=== PATIENT | male | born 1960 | race Caucasian/White ===

== ENCOUNTER 2021-09-01 21:27 | Inpatient (IN) | payer OTHER, SELFPAY ==
--- NOTE | ~2021-09-01 | XR_ITS ---
EXAMINATION: XR chest 1V portable DATE: 09/05/2021 08:31 INDICATION: Shortness of breath. COVID-19 pneumonia. Hypoxia. TECHNIQUE: A single frontal view of the chest was obtained. COMPARISON: Chest single view 09/01/2021 FINDINGS: There are patchy airspace opacities in all lung zones bilaterally with a peripheral predomi nance. No pleural effusion or pneumothorax. The heart size is normal. IMPRESSION: 1. Worsened diffuse lung disease, consistent with COVID-19 pneumonia. Reviewed, dictated and finalized at location A.
--- NOTE | ~2021-09-01 | XR_ITS ---
EXAMINATION: XR chest 1V portable DATE: 09/01/2021 22:24 INDICATION: Fever and cough. TECHNIQUE: A single frontal view of the chest was obtained. COMPARISON: None. FINDINGS: There are patchy airspace opacities in the mid and lower lung zones. No pleural effusion or pneumothorax. The heart size is normal. There are old healed right rib fractures. IMPRESSION: 1. Patchy airspace opacities in the mid and lower lung zones, consistent with COVID-19 pneumonia. Reviewed, dictated and finalized at location A. IMPRESSION: 1. Patchy airspace opacities in the mid and lower lung zones, consistent with C OVID-19 pneumonia.
--- NOTE | 2021-09-01 21:37 | ED.FEVER ---
HPI - Fever General Chief Complaint: Fever Stated Complaint: nausea,vomitting,fever Time Seen by Provider: 09/01/21 21:50 Source: patient Mode of arrival: wheelchair Limitations: no limitations History of Present Illness HPI Narrative: 60-year-old man with a history of type 2 diabetes sleep apnea, hypertension comes emergency department complaining of weakness, fever, cough, vomiting and nausea. Patient states his symptoms started 5 days ago. He denies shortness of breath and chest pain has had no diarrhea, rash, known sick contacts, abdominal pain or dysuria. MD elicited complaint: fever and weakness Pertinent past history: diabetes Onset (ago): day(s) (5) Exacerbating factors: nothing Relieving factors: nothing Associated symptoms: cough, nausea, vomiting and back/flank pain Treatments prior to arrival fever: acetaminophen (At 3:00 p.m.) Related Data Home Medications Medication Instructions Recorded Confirmed hydrochlorothiazide 25 mg tablet 25 mg PO DAILY 05/24/20 09/01/21 levothyroxine 88 mcg tablet 88 mcg PO DAILY 05/24/20 09/01/21 lisinopril 30 mg tablet 20 mg PO DAILY 05/24/20 09/01/21 metformin 1,000 mg tablet,extended 1,000 mg PO BID 05/24/20 09/01/21 release 24hr sitagliptin 100 mg tablet 100 mg PO DAILY 05/24/20 09/01/21 atorvastatin 40 mg PO DAILY 09/01/21 09/01/21 dulaglutide [Trulicity] 0.75 mg SUBCUT WEEKLY 09/01/21 09/01/21 trazodone 100 mg PO HS 09/01/21 09/01/21 Allergies Allergy/AdvReac Type Severity Reaction Status Date / Time Penicillins Allergy Hives Verified 09/01/21 21:49 zolpidem [From Ambien] AdvReac sleepwalkin Verified 09/01/21 21:49 g Review of Systems Review of Systems: All systems reviewed & are unremarkable except as noted in HPI and below Constitutional: Constitutional: Denies chills, Reports fatigue and Reports fever(s) Eyes: Eyes: Denies change in vision and Denies photophobia ENT: Denies nasal congestion and Denies sore throat Cardiovascular: Cardiovascular: Denies chest pain Respiratory: Respiratory: Reports cough, Denies dyspnea and Denies wheezing Gastrointestinal: Gastrointestinal: Denies abdominal pain, Denies diarrhea, Reports nausea and Reports vomiting Genitourinary: Genitourinary: Denies hematuria and Denies dysuria Musculoskeletal: Musculoskeletal: Reports back pain, Denies arthralgias and Denies joint swelling Integumentary/Breasts: Skin/Breast: Denies pruritus, Denies erythema and Denies rash Neurologic: Denies vertigo, Denies dizziness, Denies syncope, Denies headache(s), Denies focal weakness and Denies numbness Allergic/Immunologic: Allergic/Immunologic: Denies lip swelling, Denies throat swelling and Denies tongue swelling PMFSH Past Medical History Medical History Diabetes Dyslipidemia Hypertension Hypothyroidism Sleep apnea Vision abnormalities Surgical History Surgical History History of knee surgery right knee scope History of thyroidectomy Family History Family History (Updated 05/24/20 @ 08:47 by Lorrie Rajput, RT(R)) Other Arthritis Diabetes mellitus Hypertension Nerve disorder Social History Social History (Updated 09/01/21 @ 22:21 by Froylan Maloney MD) Smoking status: Current some day smoker Alcohol intake: current Substance use: never Living arrangements: with family Exam Const: General: alert and ill appearing acutely Orientation/consciousness: patient oriented x3 Limitations: no limitations Other: Mild acute distress HENMT: Head: normal to inspection Ears: external ears normal, TM's normal bilaterally and EAC's normal General nose exam: Normal nares present Face and sinus: normal facial exam Mouth: Yes moist mucous membranes Throat: posterior oropharynx normal Eyes: Conjunctivae: conjunctivae normal Pupils: Equal, round and reactive pupils present EOM: EOMs intac
[2021-09-01 21:44] VITALS: BP 135/80; PULSE 96; RESP 20; TEMP 40; O2SAT 92
--- NOTE | 2021-09-01 21:49 | ECG_ITS ---
Measurements Intervals [place] Rate: 91 P: 24 AK: 155 QRS: -9 QRSD: 90 T: 1 QT: 334 QTc: 412 Interpretive Statements SINUS RHYTHM BORDERLINE T WAVE ABNORMALITY- INFERIOR LEADS BASELINE ARTIFACT- AVF BORDERLINE ECG Electronically Signed On 09-02-2021 7:48:14 CDT by Brock De D.O.
[2021-09-01] MEDS: ACETAMINOPHEN 500 MG TABLET 1000 MG PO (22:06)
[2021-09-01] MEDS: SODIUM CHLORIDE 0.9% IV 1,000 ML 999 ML IV CONT (22:06)
[2021-09-01] MEDS: ONDANSETRON INJ 4 MG/2 ML VIAL IV PUSH (22:06)
[2021-09-01 22:13] LABS: Basophils Absolute Auto 0.02 K/mm3 (0.00-0.10); Basophils Percent Auto 0.8 % (0.0-1.0); Hematocrit 50.8 % (40.0-54.0); Hemoglobin 17.2 g/dL (14.0-18.0); Immature Granulocyte Absolute 0.01 K/mm3 (0.00-0.00); Immature Granulocyte Percent A 0.4 % (0.0-0.0); Immature Platelet Fraction Pct 2.6 % (1.0-7.0); Lymphocytes Absolute Auto 0.76 K/mm3 (1.10-4.50); Lymphocytes Percent Auto 30.8 % (18.0-42.0); Mean Corpuscular HGB Conc 33.9 g/dL (32.0-36.0); Mean Corpuscular Hemoglobin 28.9 pg (27.0-31.0); Mean Corpuscular Volume 85.4 fL (78.0-102.0); Mean Platelet Volume 10.1 fl (8.7-11.0); Monocytes Absolute Auto 0.08 K/mm3 (0.10-0.90); Monocytes Percent Auto 3.2 % (2.0-11.0); Neutrophils Absolute Auto 1.6 K/mm3 (1.7-7.2); Neutrophils Percent Auto 64.8 % (50.0-70.0); Platelet Count Result 132 K/mm3 (150-420); Red Blood Count 5.95 M/mm3 (4.70-6.10); Red Cell Distribution Width 13.3 % (11.6-14.4); White Blood Count 2.5 K/mm3 (4.8-10.8)
[2021-09-01 22:21] VITALS: RESP 20
[2021-09-01 22:22] LABS: INR 1.1; Partial Thromboplastin Time 34.2 SEC (23.90-30.70); Prothrombin Time 11.3 Seconds (9.50-12.10)
[2021-09-01 22:27] VITALS: BP 132/89; PULSE 88; PULSE 90; RESP 20; O2SAT 89; O2SAT 91
[2021-09-01 22:27] LABS: Lactic Acid Reflex 1.2 mmol/L (0.4-2.0)
[2021-09-01 22:33] LABS: Appearance Urine Clear (Clear); Bilirubin Urine Negative (Negative); Color Urine Yellow (Yellow); Glucose Urine UA Negative (Negative); Ketones Urine Negative (Negative); Leukocyte Esterase Ur Negative LEU/UL (Negative); Nitrate Urine Negative (Negative); Protein Urine 2+ (Negative); Specific Grav Ur >= 1.030 (1.010-1.020); Urobilinogen Urine 0.2 mg/dL (0.2-1.0); pH Urine 5.5 (5.0-8.0)
[2021-09-01 22:36] LABS: Alanine Aminotransferase 34 U/L (16-63); Albumin Level 3.5 g/dL (3.4-5.0); Alkaline Phosphatase 51 U/L (46-116); Anion Gap 12 mmol/L (8-16); Aspartate Amino Transferase 28 U/L (15-37); Bilirubin,Total 0.4 mg/dL (0.00-1.00); Blood Urea Nitrogen 9 mg/dL (7-18); Calcium 8.5 mg/dL (8.5-10.1); Carbon Dioxide 25 mmol/L (21-32); Chloride 100 mmol/L (98-108); Estimated CRCL calculation 51 ml/min; Estimated Glomerular Filt Rate 42; Glucose 193 mg/dL (70-99); Osmolality Calculated 287 mOsm/kg (285-295); Potassium 4.1 mmol/L (3.5-5.1); Sodium 137 mmol/L (136-145)
[2021-09-01 22:38] VITALS: TEMP 38.9
--- NOTE | 2021-09-01 22:39 | PC.NURSE ---
PT RESTING PER COT. CALL JEWELL IN REACH. AWAITING LAB RESULTS.
[2021-09-01 22:41] LABS: Add Urine Microscopic? YES; Blood Urine Trace-lysed (Negative)
[2021-09-01 22:42] LABS: Bacteria Urine 1+ /hpf; Mucus Urine Few /lpf; Squamous Epithelial Cell Urine Rare /hpf (Few)
[2021-09-01 22:43] LABS: Troponin I 8.8 ng/L (0.00-60.4)
[2021-09-01 23:09] LABS: Influenza A QL RT-PCR Negative (Negative); Influenza B QL RT-PCR Negative (Negative); SARS-CoV-2 RNA PCR Positive (Negative)
[2021-09-01 23:18] VITALS: PULSE 78; RESP 20; O2SAT 92
[2021-09-01 23:43] VITALS: BP 98/80; PULSE 80; RESP 18; TEMP 38.9; O2SAT 97
[2021-09-02] VITALS (16 sets, daily range): BP systolic 93–129; BP diastolic 54–77; PULSE 63–78; RESP 20–32; TEMP 36.8–37.7; O2SAT 87–97; BMI 32.2
--- NOTE | 2021-09-02 00:27 | PC.NURSE ---
Tamie admitted to room 210 per stretcher from ER. Tamie alert and oriented and is oriented to room and call light.
[2021-09-02] MEDS: traZODone HCL 50 MG TABLET 100 MG PO ×2 (00:53→20:06)
[2021-09-02] MEDS: DEXAMETHASONE SOD PHOS INJ 4 MG/ML VIAL 6 MG IV PUSH ×2 (01:21→08:39)
[2021-09-02] MEDS: PANTOPRAZOLE SODIUM IV 40 MG VIAL IV PUSH ×2 (01:21→08:40)
[2021-09-02] MEDS: SODIUM CHLORIDE 0.9% IV 1,000 ML 150 ML IV CONT ×2 (01:31→20:16)
[2021-09-02] MEDS: REMDESIVIR 200 MG/NS 250 ML 200 MG/250 ML BAG 250 MG IVPB (01:32)
[2021-09-02 05:16] LABS: Hematocrit 40.9 % (40.0-54.0); Hemoglobin 13.9 g/dL (14.0-18.0); Mean Corpuscular Hemoglobin 29.1 pg (27.0-31.0); Mean Corpuscular Volume 85.6 fL (78.0-102.0); Mean Platelet Volume 9.4 fl (8.7-11.0); Platelet Count Result 125 K/mm3 (150-420); Red Blood Count 4.78 M/mm3 (4.70-6.10); Red Cell Distribution Width 13.4 % (11.6-14.4); White Blood Count 2.7 K/mm3 (4.8-10.8)
[2021-09-02 05:29] LABS: INR 1.1; Prothrombin Time 11.8 Seconds (9.50-12.10)
[2021-09-02 05:31] LABS: Alanine Aminotransferase 27 U/L (16-63); Albumin Level 2.7 g/dL (3.4-5.0); Alkaline Phosphatase 38 U/L (46-116); Anion Gap 12 mmol/L (8-16); Aspartate Amino Transferase 26 U/L (15-37); Bilirubin,Total 0.3 mg/dL (0.00-1.00); Blood Urea Nitrogen 12 mg/dL (7-18); Calcium 7.7 mg/dL (8.5-10.1); Carbon Dioxide 23 mmol/L (21-32); Chloride 103 mmol/L (98-108); Estimated CRCL calculation 61 ml/min; Estimated Glomerular Filt Rate 50; Glucose 233 mg/dL (70-99); Osmolality Calculated 292 mOsm/kg (285-295); Potassium 4.4 mmol/L (3.5-5.1); Sodium 138 mmol/L (136-145); Total Protein 6.2 g/dL (6.4-8.2)
[2021-09-02 05:56] LABS: Troponin I 9.2 ng/L (0.00-60.4)
[2021-09-02 05:58] LABS: Band Neutrophils Percent 0 % (0-6); Basophils Absolute Manual 0.02 K/mm3 (0-0.1); Basophils Percent Manual 1 % (0-1); Eosinophils Percent Manual 0 % (1-6); Lymphocytes Absolute Manual 0.91 K/mm3 (1.1-4.5); Lymphocytes Percent Manual 34 % (18-44); Monocytes Absolute Manual 0.05 K/mm3 (0.1-0.90); Monocytes Percent Manual 2 % (3-9); Neutrophils Percent Manual 63 % (46-73); Platelet Estimate Adequate (Adequate); Total Cells Counted 100
[2021-09-02] MEDS: LEVOTHYROXINE SODIUM 88 MCG TABLET PO (06:10)
[2021-09-02 07:46] LABS: Glucose Point of Care 250 mg/dl (65-105)
[2021-09-02] MEDS: ENOXAPARIN 40 MG/0.4 ML SYRINGE SUB-Q (08:40)
[2021-09-02] MEDS: ATORVASTATIN 40 MG TABLET PO (08:41)
[2021-09-02] MEDS: lisinopriL 20 MG TABLET PO (08:42)
[2021-09-02] MEDS: hydroCHLOROthiazide 25 MG TABLET PO (08:42)
--- NOTE | 2021-09-02 09:04 | PM.IMHP ---
H&P: HPI History of Present Illness Date/Time: 09/02/21 09:04 Sudarshan Newell is a 60 year old male who comes to the ER with a week long history of SOB, body aches, subjective fevers, decreased appetite, joint aches, minimal diarrhea, decreased PO fluid intake. Pt states that he has not had any COVID vaccination. Over the last couple days Pt's symptoms increased and he became lethargic. ABG obtained on the floor and shows: pH 7.4, pCO2 34.9, pO2 60.6, HCO3 21.2, O2 Sat 91.1 Pt has a PHMx to include: DM, Dyslipidemia, Hypertension, Hypothyroidism, Sleep apnea, Vision abnormalities Chief Complaint: SOB, Lethargy Review of Systems Review of Systems: All systems reviewed & are unremarkable except as noted in HPI and below Respiratory: Respiratory: Reports no additional respiratory complaints, Reports cough (continuous coughing with deep inspiration), Reports dyspnea and Reports dyspnea on exertion Gastrointestinal: Gastrointestinal: Reports no additional gastrointestinal complaints and Denies abdominal pain Genitourinary: Genitourinary: Reports no additional male genitourinary complaints Musculoskeletal: Musculoskeletal: Reports as per HPI Neurologic: Reports system reviewed and no additional complaints, except as documented, Denies vertigo, Denies dizziness, Denies headache(s) and Reports weakness (Lethargy) Psychiatric: Psychiatric: Reports no additional psychiatric complaints [facility] Past Medical History Medical History (Updated 09/02/21 @ 11:28 by JOSE Arroyo) Diabetes Dyslipidemia Hypertension Hypothyroidism Sleep apnea Vision abnormalities Surgical History Surgical History History of knee surgery right knee scope History of thyroidectomy Family History Family History Other Arthritis Diabetes mellitus Hypertension Nerve disorder Social History Social History Smoking status: Never smoker Second hand tobacco smoke exposure: No Alcohol intake: never Substance use: never Living arrangements: with family Spiritual care concerns: No Meds Home Medications and Allergies Home Medications Medication Instructions Recorded Confirmed Type hydrochlorothiazide 25 mg tablet 25 mg PO DAILY 05/24/20 09/01/21 History levothyroxine 88 mcg tablet 88 mcg PO DAILY 05/24/20 09/01/21 History lisinopril 30 mg tablet 20 mg PO DAILY 05/24/20 09/01/21 History metformin 1,000 mg tablet,extended 1,000 mg PO BID 05/24/20 09/01/21 History release 24hr sitagliptin 100 mg tablet 100 mg PO DAILY 05/24/20 09/01/21 History atorvastatin 40 mg PO DAILY 09/01/21 09/01/21 History dulaglutide [Trulicity] 0.75 mg SUBCUT WEEKLY 09/01/21 09/01/21 History trazodone 100 mg PO HS 09/01/21 09/01/21 History Allergies Allergy/AdvReac Type Severity Reaction Status Date / Time Penicillins Allergy Hives Verified 09/01/21 21:49 zolpidem [From Ambien] AdvReac sleepwalkin Verified 09/01/21 21:49 g Vital Signs Vital Signs - 24 hr 09/01/21 21:44 09/01/21 22:21 09/01/21 22:27 Temperature 104.0 F H Pulse Rate 96 88 Respiratory Rate 20 20 20 Blood Pressure 135/80 132/89 Pulse Oximetry 92 91 09/01/21 22:38 09/01/21 23:18 09/01/21 23:43 Temperature 102.1 F H 102.1 F H Pulse Rate 78 80 Respiratory Rate 20 18 Blood Pressure 98/80 L Pulse Oximetry 92 97 09/02/21 00:00 09/02/21 02:00 09/02/21 03:23 Temperature 99.8 F H 98.2 F Pulse Rate 78 78 78 Respiratory Rate 20 20 Blood Pressure 110/71 129/71 Pulse Oximetry 91 92 09/02/21 06:00 09/02/21 07:56 09/02/21 07:58 Temperature 98.6 F Pulse Rate 67 76 71 Respiratory Rate Blood Pressure 111/66 Pulse Oximetry 89 L Exam Const: General: cooperative, no acute distress, alert, awake and tired appearing Nutritional Appearance: overweight Limitations: ot
[2021-09-02] MEDS: ALBUTEROL SULFATE (*SP) INHALER 2 PUFF INHALATION ×4 (09:42→20:26)
[2021-09-02] MEDS: guaiFENesin/DEXTROMETHORPHAN 5 ML UDC 10 ML PO ×3 (09:45→20:15)
[2021-09-02 10:21] LABS: Base Excess ABG -2.8 mmol/L (0-2); HCO3 ABG 21.2 mmol/L (23-29); Oxygen Content ABG 18.2 %vol (16.0-22.0); Oxygen Saturation ABG 91.1 % (95-97); Oxyhemoglobin 90.6 % (94-100); PCO2 ABG 34.9 mmHg (35-45); PO2 ABG 60.6 mmHg (80-90); Total Hemoglobin 14.3 g/dL (12.0-18.0)
[2021-09-02 10:22] LABS: Modified Allen's Test Pass; Site Drawn LEFT RADIAL
[2021-09-02 10:23] LABS: Device NASAL CANNULA; Liters per Minute 1.5 LPM
[2021-09-02 12:01] LABS: Glucose Point of Care 264 mg/dl (65-105)
[2021-09-02 16:51] LABS: Glucose Point of Care 214 mg/dl (65-105)
--- NOTE | 2021-09-02 18:40 | PC.NURSE ---
Patient rounding completed. Patient was sitting up in bed with urinal in hand getting ready to void. Call light is within reach of patient and pt was in a pleasant mood.
[2021-09-02 21:22] LABS: Glucose Point of Care 242 mg/dl (65-105)
[2021-09-02] MEDS: REMDESIVIR 100 MG/NS 250 ML 100 MG/250 ML BAG 250 MG IVPB (21:51)
[2021-09-03] VITALS (16 sets, daily range): BP systolic 97–130; BP diastolic 58–75; PULSE 54–89; RESP 18–21; TEMP 36.1–36.8; O2SAT 92–98
--- NOTE | 2021-09-03 02:02 | PC.NURSE ---
Voided in urinal @ bedside. O2 L& IV continues.
--- NOTE | 2021-09-03 03:17 | PC.NURSE ---
Voided in urinal @ bedside. IV & o2 continues.
[2021-09-03 05:39] LABS: HCO3 ABG 21.2 mmol/L (23-29); Oxygen Content ABG 17.9 %vol (16.0-22.0); Oxygen Saturation ABG 94.6 % (95-97); Oxyhemoglobin 94.1 % (94-100); PCO2 ABG 35.3 mmHg (35-45); PO2 ABG 78.7 mmHg (80-90); Total Hemoglobin 13.5 g/dL (12.0-18.0)
[2021-09-03 05:42] LABS: Hematocrit 37.6 % (40.0-54.0); Hemoglobin 12.9 g/dL (14.0-18.0); Mean Corpuscular HGB Conc 34.3 g/dL (32.0-36.0); Mean Corpuscular Hemoglobin 29.2 pg (27.0-31.0); Mean Corpuscular Volume 85.1 fL (78.0-102.0); Mean Platelet Volume 9.6 fl (8.7-11.0); Platelet Count Result 156 K/mm3 (150-420); Red Blood Count 4.42 M/mm3 (4.70-6.10); Red Cell Distribution Width 13.3 % (11.6-14.4); White Blood Count 3.7 K/mm3 (4.8-10.8)
[2021-09-03 05:48] LABS: Device NON-REBREATHER MASK; Modified Allen's Test Pass; Site Drawn LEFT RADIAL
[2021-09-03 05:53] LABS: INR 1.1; Prothrombin Time 11.8 Seconds (9.50-12.10)
[2021-09-03 05:57] LABS: Alanine Aminotransferase 29 U/L (16-63); Albumin Level 2.5 g/dL (3.4-5.0); Alkaline Phosphatase 35 U/L (46-116); Anion Gap 11 mmol/L (8-16); Aspartate Amino Transferase 19 U/L (15-37); Bilirubin,Total 0.3 mg/dL (0.00-1.00); Blood Urea Nitrogen 17 mg/dL (7-18); Calcium 7.5 mg/dL (8.5-10.1); Carbon Dioxide 23 mmol/L (21-32); Chloride 106 mmol/L (98-108); Estimated CRCL calculation 66 ml/min; Estimated Glomerular Filt Rate 55; Glucose 176 mg/dL (70-99); Osmolality Calculated 295 mOsm/kg (285-295); Potassium 4.1 mmol/L (3.5-5.1); Sodium 140 mmol/L (136-145); Total Protein 5.8 g/dL (6.4-8.2)
[2021-09-03] MEDS: LEVOTHYROXINE SODIUM 88 MCG TABLET PO (06:15)
[2021-09-03] MEDS: SODIUM CHLORIDE 0.9% IV 1,000 ML 150 ML IV CONT (06:16)
[2021-09-03] MEDS: guaiFENesin/DEXTROMETHORPHAN 5 ML UDC 10 ML PO ×3 (06:16→21:55)
--- NOTE | 2021-09-03 07:02 | PC.NURSE ---
Pt did have episode of spo2 @88% after taking his 0600 po meds. Head of bed elevated O2 put at 4L per NC spo2 up to 95%.
[2021-09-03 07:57] LABS: Glucose Point of Care 166 mg/dl (65-105)
[2021-09-03] MEDS: ATORVASTATIN 40 MG TABLET PO (08:49)
[2021-09-03] MEDS: ALBUTEROL SULFATE (*SP) INHALER 2 PUFF INHALATION ×4 (08:49→21:11)
[2021-09-03] MEDS: DEXAMETHASONE SOD PHOS INJ 4 MG/ML VIAL 6 MG IV PUSH (08:50)
[2021-09-03] MEDS: ENOXAPARIN 40 MG/0.4 ML SYRINGE SUB-Q (08:50)
[2021-09-03] MEDS: lisinopriL 20 MG TABLET PO (08:51)
[2021-09-03] MEDS: PANTOPRAZOLE SODIUM IV 40 MG VIAL IV PUSH (08:51)
[2021-09-03] MEDS: ACETAMINOPHEN 325 MG TABLET 650 MG PO (08:52)
--- NOTE | 2021-09-03 09:48 | PHAR ---
09/03/21: verified pt.'s home med rita lucas. tls
[2021-09-03 11:36] LABS: Glucose Point of Care 199 mg/dl (65-105)
--- NOTE | 2021-09-03 12:52 | WPDPN ---
Progress Note: A&P Assessment and Plan (1) 2019 novel coronavirus-infected pneumonia (NCIP): Code(s): U07.1 - COVID-19; J12.82 - Pneumonia due to coronavirus disease 2019 <WHIT Means - Last Filed: 09/03/21 12:58> Status: Acute <WHIT Means - Last Filed: 09/03/21 12:58> Assessment and Plan: ABG obtained on the floor and shows: pH 7.4, pCO2 34.9, pO2 60.6, HCO3 21.2, O2 Sat 91.1, 1.5 L/min NC currently, Remdesivir, Decadron, Levofloxacin (renal dosed, eCrCl 61), Incentive Spirometer, Flutter Valve, Albuterol MDI, Robitussin DM, Cardiac Monitoring with continuous SpO2 monitoring, RT encouraged Prone position, will obtain another ABG in the AM. Pt has not received any COVID Vaccination, PT/INR 11.8/34.2, Cr 1.68 to 1.43, cCrCl 51-61, eGFR 51, AST/ALT 26/27, Blood Cx pending, requiring supplemental O2, Lovenox for DVT prophylaxis stable continue treatment plan <WHIT Means - Last Filed: 09/03/21 12:58> (2) Acute renal failure: Code(s): N17.9 - Acute kidney failure, unspecified <WHIT Means - Last Filed: 09/03/21 12:58> Status: Acute <WHIT Means - Last Filed: 09/03/21 12:58> Assessment and Plan: Pt received 1 L NS bolus in the ER and currently running at 150ml/h, initial improvement from Cr 1.68 to 1.43 and eCrCl from 51 to 61, will continue to monitor and make adjustments as needed, current renal output is 0.08 mg/kg/h with positive fluid balance of +1450 ml renal function improving cr 1.43>1.32 <WHIT Means - Last Filed: 09/03/21 12:58> (3) Hypoxia: Code(s): R09.02 - Hypoxemia <WHIT Means - Last Filed: 09/03/21 12:58> Status: Acute <WHIT Means - Last Filed: 09/03/21 12:58> Assessment and Plan: Requiring supplemental O2, continuous SpO2 monitoring, currently 1.5 L/min NC with SpO2 of 94% with Pt laying on his Left side, will obtain follow up ABG in AM, ABG obtained on the floor today and shows: pH 7.4, pCO2 34.9, pO2 60.6, HCO3 21.2, O2 Sat 91.1 continue supplementary oxygen patient currently on 4 L nasal cannula <WHIT Means - Last Filed: 09/03/21 12:58> (4) Diabetes: Code(s): E11.9 - Type 2 diabetes mellitus without complications <WHIT Means - Last Filed: 09/03/21 12:58> Status: Acute <WHIT Means - Last Filed: 09/03/21 12:58> Assessment and Plan: Will continue Trulicity once brings in home medication which is due Thursday09/04/2021 and weekly thereafter, Januvia 100 mg PO Daily, ACHS glucose checks, no SSI at this time, Pt has decreased appetite, Diabetic Diet, will monitor glucose and make adjustments as needed. <WHIT Means - Last Filed: 09/03/21 12:58> (5) Acute dehydration: Code(s): E86.0 - Dehydration <WHIT Means - Last Filed: 09/03/21 12:58> Status: Acute <WHIT Means - Last Filed: 09/03/21 12:58> Assessment and Plan: Received NS 1L bolus in ER and currently at 150 ml/h, PO intake needs improvement <WHIT Means - Last Filed: 09/03/21 12:58> (6) Thrombocytopenia: Code(s): D69.6 - Thrombocytopenia, unspecified <WHIT Means - Last Filed: 09/03/21 12:58> Status: Acute <WHIT Means - Last Filed: 09/03/21 12:58> Assessment and Plan: Currently Plt is 125, no obvious bleeding, will monitor platelets within normal limits <WHIT Means - Last Filed: 09/03/21 12:58> (7) Hypertension: Code(s): I10 - Essential (primary) hypertension <WHIT Means - Last Filed: 09/03/21 12:58> Status: Acute <WHIT Means - Last Filed: 09/03/21 12:58> Assessment and Plan: Currently VS stable, continue Lisinopril, HCTZ held d/t dehydration, plan to resume in 3
--- NOTE | 2021-09-03 14:48 | PC.NURSE ---
Patient rounding completed. Patient was sitting in his chair with his feet elevated and call light within reach. Patient stated they did not need anything at this time.
--- NOTE | 2021-09-03 15:33 | PC.NURSE ---
Patient rounding completed. Pt stated they were fine and had call light within reach.
--- NOTE | 2021-09-03 18:50 | PC.NURSE ---
Patient rounding completed. Pt stated they are comfortable and has call light within reach.
[2021-09-03 21:06] LABS: Glucose Point of Care 215 mg/dl (65-105)
[2021-09-03] MEDS: traZODone HCL 50 MG TABLET 150 MG PO (21:11)
[2021-09-03 21:27] LABS: Glucose Point of Care 219 mg/dl (65-105)
[2021-09-03] MEDS: REMDESIVIR 100 MG/NS 250 ML 100 MG/250 ML BAG 250 MG IVPB (21:56)
[2021-09-04] VITALS (9 sets, daily range): BP systolic 127–135; BP diastolic 65–81; PULSE 62–87; RESP 18–24; TEMP 36.4–37.2; O2SAT 91–96
--- NOTE | 2021-09-04 00:08 | PC.NURSE ---
remdesivir completed and levoquin initiated. IV site patent and flushes without difficulty. Patient alert and oriented x3. Call light in reach.Pain level rated at 0. continues to have dry cough. LCTA at this time. Additional fluids offered but declined.
[2021-09-04 05:14] LABS: Hematocrit 38.2 % (40.0-54.0); Mean Corpuscular Volume 85.1 fL (78.0-102.0); Mean Platelet Volume 9.6 fl (8.7-11.0); Platelet Count Result 178 K/mm3 (150-420); Red Blood Count 4.49 M/mm3 (4.70-6.10); Red Cell Distribution Width 13.3 % (11.6-14.4); White Blood Count 4.3 K/mm3 (4.8-10.8)
[2021-09-04 05:26] LABS: INR 1.1; Prothrombin Time 11.9 Seconds (9.50-12.10)
[2021-09-04 05:32] LABS: Alanine Aminotransferase 28 U/L (16-63); Albumin Level 2.6 g/dL (3.4-5.0); Alkaline Phosphatase 39 U/L (46-116); Anion Gap 12 mmol/L (8-16); Aspartate Amino Transferase 25 U/L (15-37); Bilirubin,Total 0.3 mg/dL (0.00-1.00); Blood Urea Nitrogen 18 mg/dL (7-18); Calcium 7.6 mg/dL (8.5-10.1); Carbon Dioxide 24 mmol/L (21-32); Chloride 106 mmol/L (98-108); Estimated CRCL calculation 61 ml/min; Estimated Glomerular Filt Rate 50; Glucose 183 mg/dL (70-99); Osmolality Calculated 300 mOsm/kg (285-295); Potassium 3.9 mmol/L (3.5-5.1); Sodium 142 mmol/L (136-145); Total Protein 5.9 g/dL (6.4-8.2)
[2021-09-04] MEDS: guaiFENesin/DEXTROMETHORPHAN 5 ML UDC 10 ML PO ×3 (06:12→21:27)
[2021-09-04] MEDS: LEVOTHYROXINE SODIUM 88 MCG TABLET PO (06:12)
[2021-09-04 07:52] LABS: Glucose Point of Care 156 mg/dl (65-105)
[2021-09-04] MEDS: ALBUTEROL SULFATE (*SP) INHALER 2 PUFF INHALATION ×4 (08:17→21:27)
[2021-09-04] MEDS: PANTOPRAZOLE SODIUM IV 40 MG VIAL IV PUSH (08:18)
[2021-09-04] MEDS: DEXAMETHASONE SOD PHOS INJ 4 MG/ML VIAL 6 MG IV PUSH (08:18)
[2021-09-04] MEDS: ENOXAPARIN 40 MG/0.4 ML SYRINGE SUB-Q (08:19)
[2021-09-04] MEDS: lisinopriL 20 MG TABLET PO (08:20)
[2021-09-04] MEDS: ATORVASTATIN 40 MG TABLET PO (08:20)
[2021-09-04 11:37] LABS: Glucose Point of Care 201 mg/dl (65-105)
--- NOTE | 2021-09-04 11:51 | WPDPN ---
Progress Note: A&P Assessment and Plan (1) 2019 novel coronavirus-infected pneumonia (NCIP): Code(s): U07.1 - COVID-19; J12.82 - Pneumonia due to coronavirus disease 2019 <WHIT Means - Last Filed: 09/04/21 11:55> Status: Acute <WHIT Means - Last Filed: 09/04/21 11:55> Assessment and Plan: ABG obtained on the floor and shows: pH 7.4, pCO2 34.9, pO2 60.6, HCO3 21.2, O2 Sat 91.1, 1.5 L/min NC currently, Remdesivir, Decadron, Levofloxacin (renal dosed, eCrCl 61), Incentive Spirometer, Flutter Valve, Albuterol MDI, Robitussin DM, Cardiac Monitoring with continuous SpO2 monitoring, RT encouraged Prone position, will obtain another ABG in the AM. Pt has not received any COVID Vaccination, PT/INR 11.8/34.2, Cr 1.68 to 1.43, cCrCl 51-61, eGFR 51, AST/ALT 26/27, Blood Cx pending, requiring supplemental O2, Lovenox for DVT prophylaxis stable continue treatment plan <WHIT Means - Last Filed: 09/04/21 11:55> (2) Acute renal failure: Code(s): N17.9 - Acute kidney failure, unspecified <WHIT Means - Last Filed: 09/04/21 11:55> Status: Acute <WHIT Means - Last Filed: 09/04/21 11:55> Assessment and Plan: Pt received 1 L NS bolus in the ER and currently running at 150ml/h, initial improvement from Cr 1.68 to 1.43 and eCrCl from 51 to 61, will continue to monitor and make adjustments as needed, current renal output is 0.08 mg/kg/h with positive fluid balance of +1450 ml renal function improving cr 1.43>1.32>1.43 <WHIT Means - Last Filed: 09/04/21 11:55> (3) Hypoxia: Code(s): R09.02 - Hypoxemia <WHIT Means - Last Filed: 09/04/21 11:55> Status: Acute <WHIT Means - Last Filed: 09/04/21 11:55> Assessment and Plan: Requiring supplemental O2, continuous SpO2 monitoring, currently 1.5 L/min NC with SpO2 of 94% with Pt laying on his Left side, will obtain follow up ABG in AM, ABG obtained on the floor today and shows: pH 7.4, pCO2 34.9, pO2 60.6, HCO3 21.2, O2 Sat 91.1 continue supplementary oxygen patient currently on 4 L nasal cannula [facility] to [facility] before discharge <WHIT Means - Last Filed: 09/04/21 11:55> (4) Diabetes: Code(s): E11.9 - Type 2 diabetes mellitus without complications <WHIT Means - Last Filed: 09/04/21 11:55> Status: Acute <WHIT Means - Last Filed: 09/04/21 11:55> Assessment and Plan: Will continue Trulicity once brings in home medication which is due Thursday09/04/2021 and weekly thereafter, Januvia 100 mg PO Daily, ACHS glucose checks, no SSI at this time, Pt has decreased appetite, Diabetic Diet, will monitor glucose and make adjustments as needed. <WHIT Means - Last Filed: 09/04/21 11:55> (5) Acute dehydration: Code(s): E86.0 - Dehydration <WHIT Means - Last Filed: 09/04/21 11:55> Status: Acute <WHIT Means - Last Filed: 09/04/21 11:55> Assessment and Plan: Received NS 1L bolus in ER and currently at 150 ml/h, PO intake needs improvement <WHIT Means - Last Filed: 09/04/21 11:55> (6) Thrombocytopenia: Code(s): D69.6 - Thrombocytopenia, unspecified <WHIT Means - Last Filed: 09/04/21 11:55> Status: Acute <WHIT Means - Last Filed: 09/04/21 11:55> Assessment and Plan: Currently Plt is 125, no obvious bleeding, will monitor platelets within normal limits <WHIT Means - Last Filed: 09/04/21 11:55> (7) Hypertension: Code(s): I10 - Essential (primary) hypertension <WHIT Means - Last Filed: 09/04/21 11:55> Status: Acute <WHIT Means - Last Filed: 09/04/21 11:55> Assessment and Plan: Currently VS stable, continue Lisinopril, HCTZ held
[2021-09-04] MEDS: HYDROcodone/acetaminophen (*CRX) 7.5-325 MG TABLET 1 TAB PO (13:24)
[2021-09-04 16:13] LABS: Glucose Point of Care 243 mg/dl (65-105)
[2021-09-04] MEDS: traZODone HCL 50 MG TABLET 150 MG PO (21:27)
[2021-09-04] MEDS: LORazepam INJ (*CRX) 2 MG/ML VIAL 1 MG IV PUSH (21:28)
[2021-09-04] MEDS: REMDESIVIR 100 MG/NS 250 ML 100 MG/250 ML BAG 250 MG IVPB (21:29)
[2021-09-04 22:10] LABS: Glucose Point of Care 262 mg/dl (65-105)
[2021-09-05] VITALS (10 sets, daily range): BP systolic 133–139; BP diastolic 72–82; PULSE 60–86; RESP 18–20; TEMP 36.7–37.1; O2SAT 76–98
--- NOTE | 2021-09-05 00:02 | PC.NURSE ---
Patient resting quietly. O2 @ 4LPM/NC. Patient denies SOB, Resp distress. Skin warm and dry. IV site to left arm without redness, swelling, drainage. Dressing to site clean, dry, intact. Patient denies pain.
--- NOTE | 2021-09-05 05:18 | PC.NURSE ---
Up to void, noted saturation to decrease while up, oxygen set up checked once back to bed and re connected, denies worsening sob when up, sats did decrease to 75% on room air with activity
[2021-09-05 05:41] LABS: Hematocrit 41.2 % (40.0-54.0); Hemoglobin 13.9 g/dL (14.0-18.0); Mean Corpuscular HGB Conc 33.7 g/dL (32.0-36.0); Mean Corpuscular Hemoglobin 28.5 pg (27.0-31.0); Mean Corpuscular Volume 84.6 fL (78.0-102.0); Mean Platelet Volume 9.2 fl (8.7-11.0); Platelet Count Result 211 K/mm3 (150-420); Red Blood Count 4.87 M/mm3 (4.70-6.10); Red Cell Distribution Width 13.4 % (11.6-14.4); White Blood Count 3.9 K/mm3 (4.8-10.8)
[2021-09-05] MEDS: LEVOTHYROXINE SODIUM 88 MCG TABLET PO (05:48)
[2021-09-05] MEDS: guaiFENesin/DEXTROMETHORPHAN 5 ML UDC 10 ML PO (05:48)
[2021-09-05 05:53] LABS: INR 1.1; Prothrombin Time 11.8 Seconds (9.50-12.10)
[2021-09-05 05:59] LABS: Alanine Aminotransferase 35 U/L (16-63); Albumin Level 2.7 g/dL (3.4-5.0); Alkaline Phosphatase 47 U/L (46-116); Anion Gap 11 mmol/L (8-16); Aspartate Amino Transferase 29 U/L (15-37); Bilirubin,Total 0.4 mg/dL (0.00-1.00); Blood Urea Nitrogen 19 mg/dL (7-18); Calcium 7.8 mg/dL (8.5-10.1); Carbon Dioxide 26 mmol/L (21-32); Chloride 103 mmol/L (98-108); Estimated CRCL calculation 60 ml/min; Estimated Glomerular Filt Rate 49; Glucose 178 mg/dL (70-99); Osmolality Calculated 296 mOsm/kg (285-295); Potassium 3.5 mmol/L (3.5-5.1); Sodium 140 mmol/L (136-145); Total Protein 6.3 g/dL (6.4-8.2)
[2021-09-05 07:35] LABS: Glucose Point of Care 157 mg/dl (65-105)
[2021-09-05] MEDS: ALBUTEROL SULFATE (*SP) INHALER 2 PUFF INHALATION ×2 (08:02→14:03)
[2021-09-05] MEDS: ATORVASTATIN 40 MG TABLET PO (08:03)
[2021-09-05] MEDS: ENOXAPARIN 40 MG/0.4 ML SYRINGE SUB-Q (08:03)
[2021-09-05] MEDS: lisinopriL 20 MG TABLET PO (08:03)
[2021-09-05] MEDS: hydroCHLOROthiazide 25 MG TABLET PO (08:03)
[2021-09-05] MEDS: DEXAMETHASONE SOD PHOS INJ 4 MG/ML VIAL 6 MG IV PUSH (08:13)
[2021-09-05] MEDS: PANTOPRAZOLE SODIUM IV 40 MG VIAL IV PUSH (08:14)
[2021-09-05 08:31] LABS: Base Excess ABG -1.6 mmol/L (0-2); HCO3 ABG 21.1 mmol/L (23-29); Oxygen Content ABG 17.5 %vol (16.0-22.0); Oxygen Saturation ABG 84.2 % (95-97); Oxyhemoglobin 83.8 % (94-100); PCO2 ABG 30.6 mmHg (35-45); PO2 ABG 47.6 mmHg (80-90); Total Hemoglobin 14.9 g/dL (12.0-18.0); pH ABG 7.46 (7.35-7.45)
[2021-09-05 08:37] LABS: Device NASAL CANNULA; Modified Allen's Test Pass; Site Drawn RIGHT RADIAL
--- NOTE | 2021-09-05 08:48 | HOMEO2EVAL ---
Evaluation was performed at [facility] [place] [facility] Oxygen Evaluation [facility]: Home Oxygen (O2) Evaluation Start: 09/05/21 07:10 Freq: ONCE Status: Active Protocol: RPE Activity Type Activity Date Activity User E-Sign Co-Sign Detail Recorded Client Recorded Date Recorded By Document 09/05/21 08:00 SJB [id number] 09/05/21 08:47 SJB Document 09/05/21 08:02 SJB [id number] 09/05/21 08:47 SJB Document 09/05/21 08:04 SJB [id number] 09/05/21 08:47 SJB Document 09/05/21 08:06 SJB [id number] 09/05/21 08:47 SJB Document 09/05/21 08:08 SJB [id number] 09/05/21 08:47 SJB Document 09/05/21 08:10 SJB [id number] 09/05/21 08:47 SJB 09/05/21 09/05/21 09/05/21 08:00 08:02 08:04 Home O2 Evaluation Test Phase Resting Resting Resting Oxygen Delivery Room Air Nasal Cannula Nasal Cannula Oxygen Flow Rate (L/min) 1 2 Pulse Oximetry (90-100 %) 76 L 79 L 81 L Pulse Rate (60-100 beats/min) 80 81 82 Rating of Perceived Dyspnea (PD) +2 Mild, Some +2 Mild, Some +2 Mild, Some Difficulty, Difficulty, Difficulty, Noticeable to Noticeable to Noticeable to the Observer the Observer the Observer Home Oxygen Evaluation Comments WILL START WILL INCREASE WILL INCREASE PATIENT ON 1 TO 2 LPM, TO 3 LPM, LPM O2, IN SITTING IN SITTING IN CHAIR CHAIR CHAIR. PLB ENCOURAGED. Treatment Charges O2 Evaluation - Inpatient 09/05/21 09/05/21 09/05/21 08:06 08:08 08:10 Home O2 Evaluation Test Phase Resting Resting Resting Oxygen Delivery Nasal Cannula Nasal Cannula Nasal Cannula Oxygen Flow Rate (L/min) 3 4 5 Pulse Oximetry (90-100 %) 84 L 83 L 85 L Pulse Rate (60-100 beats/min) 82 85 86 Rating of Perceived Dyspnea (PD) +2 Mild, Some +2 Mild, Some +2 Mild, Some Difficulty, Difficulty, Difficulty, Noticeable to Noticeable to Noticeable to the Observer the Observer the Observer Home Oxygen Evaluation Comments WILL INCREASE DISCUSSED WITH EVAL TO 4 LPM, SONDA INABLITLY DISCONTINUED. SITTING IN TO GET SP02 UP RN IN ROOM. PT CHAIR. USING , WILL ORDER LEFT ON [address] ABG AND CXR. AND RN WILL INCREASED 02 TO CONTINUE TO 5 LPM. WATCH. EXERCISE NOT PERFORMED DUE TO LOW SP02S. Treatment Charges
--- NOTE | 2021-09-05 10:07 | PC.NURSE ---
Patient O2 SATS decreased, Blood Gas and Chest X-ray obtained that resulted in worsening condition. Patient placed on non-rebreather mask @ 10L along with NC @ 6L of O2 therapy.
--- NOTE | 2021-09-05 11:23 | PM.TDS ---
Transfer Discharge Sum: Prov Provider Date of admission: 09/01/21 23:16 Primary care physician: Gilberto Dixon, Admitting clinician: Froylan Maloney MD DS: Admitting Diagnosis Discharge Date 09/05/2021 Admitting Diagnosis Covid pneumonia DS: Discharge Diagnosis Discharge Diagnosis (1) 2019 novel coronavirus-infected pneumonia (NCIP): Code(s): U07.1 - COVID-19; J12.82 - Pneumonia due to coronavirus disease 2018 Status: Acute Assessment and Plan: ABG obtained on the floor and shows: pH 7.4, pCO2 34.9, pO2 60.6, HCO3 21.2, O2 Sat 91.1, 1.5 L/min NC currently, Remdesivir, Decadron, Levofloxacin (renal dosed, eCrCl 61), Incentive Spirometer, Flutter Valve, Albuterol MDI, Robitussin DM, Cardiac Monitoring with continuous SpO2 monitoring, RT encouraged Prone position, will obtain another ABG in the AM. Pt has not received any COVID Vaccination, PT/INR 11.8/34.2, Cr 1.68 to 1.43, cCrCl 51-61, eGFR 51, AST/ALT 26/27, Blood Cx pending, requiring supplemental O2, Lovenox for DVT prophylaxis chest x-ray indicate worsening pneumonia patient transferring to [facility] accepted by Dr. Carpio Patient transferring to [facility] indicated accepting physician Dr. Carpio Blood gas Ph - 7.40>7.40>7.46 co2-34.9>35.3>30.6 o2-60.6>78.7>47.6 bicarb- 21.2>21.2>21.1 CRP on admission 12.0 today 5.1 (2) Acute renal failure: Code(s): N17.9 - Acute kidney failure, unspecified Status: Acute Assessment and Plan: Pt received 1 L NS bolus in the ER and currently running at 150ml/h, initial improvement from Cr 1.68 to 1.43 and eCrCl from 51 to 61, will continue to monitor and make adjustments as needed, current renal output is 0.08 mg/kg/h with positive fluid balance of +1450 ml renal function improving cr 1.43>1.32>1.43>1.45 Labs for today cr 1.45, BUN 19, GFR 49 (3) Hypoxia: Code(s): R09.02 - Hypoxemia Status: Acute Assessment and Plan: Requiring supplemental O2, continuous SpO2 monitoring, currently 1.5 L/min NC with SpO2 of 94% with Pt laying on his Left side, will obtain follow up ABG in AM, ABG obtained on the floor today and shows: pH 7.4, pCO2 34.9, pO2 60.6, HCO3 21.2, O2 Sat 91.1 home o2 failed patient desat'ed to 85% at rest unable to complete Refer to ABGs (4) Diabetes: Code(s): E11.9 - Type 2 diabetes mellitus without complications Status: Acute Assessment and Plan: Will continue Trulicity once brings in home medication which is due Thursday09/04/2021 and weekly thereafter, Januvia 100 mg PO Daily, ACHS glucose checks, no SSI at this time, Pt has decreased appetite, Diabetic Diet, will monitor glucose and make adjustments as needed. (5) Acute dehydration: Code(s): E86.0 - Dehydration Status: Acute Assessment and Plan: Received NS 1L bolus in ER and currently at 150 ml/h, PO intake needs improvement resolved (6) Thrombocytopenia: Code(s): D69.6 - Thrombocytopenia, unspecified Status: Acute Assessment and Plan: Currently Plt is 125, no obvious bleeding, will monitor platelets within normal limits (7) Hypertension: Code(s): I10 - Essential (primary) hypertension Status: Acute Assessment and Plan: Currently VS stable, continue Lisinopril, HCTZ held d/t dehydration, plan to resume in 3 days. stable (8) Hypothyroidism: Code(s): E03.9 - Hypothyroidism, unspecified Status: Acute Assessment and Plan: Continue with Levothyroxine 88 mcg PO Daily (9) Dyslipidemia: Code(s): E78.5 - Hyperlipidemia, unspecified Status: Acute Assessment and Plan: Continue Atorvastatin Transfer Discharge Sum: Med Medications Active and Home Medications: Home Medications hydrochlorothiazide 25 mg tablet 25 mg PO DAILY 05/24/20 [History Confirmed 09/01/21] levothyroxine 88 mcg tablet 88 mcg PO DAILY 05/24/20 [History Confirmed 09/01/21] lisinopr
--- NOTE | 2021-09-05 11:35 | PC.NURSE ---
[facility] accepts in transfer for Dr Nash, awaiting bed assignment, patient and significant other aware
[2021-09-05 11:36] LABS: CRP 5.1 mg/dL (0.0-0.9)
[2021-09-05 11:37] LABS: Glucose Point of Care 189 mg/dl (65-105)
[2021-09-05 12:41] LABS: Base Excess ABG -1.8 mmol/L (0-2); Oxygen Content ABG 20.1 %vol (16.0-22.0); Oxyhemoglobin 96.7 % (94-100); PCO2 ABG 34.7 mmHg (35-45); PO2 ABG 98.2 mmHg (80-90); Total Hemoglobin 14.7 g/dL (12.0-18.0); pH ABG 7.42 (7.35-7.45)
--- NOTE | 2021-09-05 12:42 | PC.NURSE ---
Patient accepted to [facility] room 4409. Report given to Nina PENNINGTON. [facility] providing transport.
[2021-09-05 12:43] LABS: Modified Allen's Test Pass; Site Drawn RIGHT RADIAL
[2021-09-05 12:44] LABS: Device NASAL CANNULA
--- NOTE | 2021-09-05 13:35 | PC.NURSE ---
Patient discharged from facility transported to [facility] in [place]. [facility] provided transport. All personal items were bagged and sent with patient.
--- NOTE | 2021-09-05 16:11 | PCPTNOTE ---
09/05/21 - prior to transfer, therapy was put on hold this morning due to poor sats. JAYSON
== END 2021-09-05 13:35 | disposition short-term general hospital (02) | DRG 177 ==
LOC: CHSED 23:29 → CHS2ND 09-02 07:20
PROVIDERS: Nurse Practitioner; Nurse Practitioner Family; Admitting Provider Emergency Medicine; Emergency Provider Emergency Medicine; PCP Family Medicine; Visit Provider Emergency Medicine
DX: U07.1 COVID-19 (principal); J12.82 Pneumonia due to coronavirus disease 2019; E86.0 Dehydration; R09.02 Hypoxemia; I10 Essential (primary) hypertension; E11.9 Type 2 diabetes mellitus without complications; E78.5 Hyperlipidemia, unspecified; E89.0 Postprocedural hypothyroidism; G47.30 Sleep apnea, unspecified; F17.200 Nicotine dependence, unspecified, uncomplicated; N17.9 Acute kidney failure, unspecified; D69.6 Thrombocytopenia, unspecified
CPT/HCPCS: 36415; 36600; 71045; 80053; 81001; 82565; 82805; 82948; 83605; 84460; 84484; 85025; 85027; 85055; 85610; 85730; 86140; 87040; 87502; 93005; 94618; 94640; 94668; 96361; 96374; 97161; 97165; 97530; 99285; A9270; C9113; C9803; J1100; J1650; J1956; J2060; J2405; J7030; U0003; U0005